=== PATIENT | male | born 1990 | race Caucasian/White ===

== ENCOUNTER 2017-02-19 16:13 | Emergency (ER) | payer OTHER ==
[~2017-02-19] VITALS: Ht 182.9 cm; Wt 92.5 kg
[2017-02-19 16:27] VITALS: BP 150/96
--- NOTE | 2017-02-19 16:43 | NUR ---
Patient to bed 08.
--- NOTE | 2017-02-19 16:51 | NUR ---
PT PRESENTS TO ER W/C/O N/V/D X2 DAYS. HX HTN. ; SKIN IS PINK/WARM/DRY; AAOX4 WITH EVEN AND STEADY GAIT; LUNGS CLEAR BL; HR EVEN AND REGULAR; PT DENIES ANY FEVER, CP, SOB, OR COUGH AT THIS TIME; PATIENT STATES PAIN OF 5/10 AT THIS TIME; VSS; PATIENT POSITIONED FOR COMFORT; HOB ELEVATED; BEDRAILS UP X2; BED DOWN. ER MD MADE AWARE OF PT STATUS.
[2017-02-19] MEDS ORDERED: ONDANSETRON 4 MG ODT PO ONE (17:00)
[2017-02-19 17:40] VITALS: BP 138/88
--- NOTE | 2017-02-19 17:40 | NUR ---
Patient discharged with v/s stable. Written and verbal after care instructions given and explained. Patient alert, oriented and verbalized understanding of instructions. Ambulatory with steady gait. All questions addressed prior to discharge. ID band removed. Patient advised to follow up with PMD. Rx of DEBBI NEWMAN given. Patient educated on indication of medication including possible reaction and side effects. Opportunity to ask questions provided and answered.
== END 2017-02-19 17:40 | disposition home or self-care (01) ==
LOC: MED 16:13
DX: T62.8X1A Toxic effect of other specified noxious substances eaten as food, accidental (unintentional), initial encounter (principal); K52.89 Other specified noninfective gastroenteritis and colitis; Z90.89 Acquired absence of other organs; Y92.511 Restaurant or cafe as the place of occurrence of the external cause
CPT/HCPCS: 81002; 99283; S0119

== ENCOUNTER 2018-09-28 20:44 | Emergency (ER) | payer OTHER ==
[~2018-09-28] VITALS: Ht 177.8 cm; Wt 88.5 kg
[2018-09-28 20:45] VITALS: BP 140/90
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
--- NOTE | 2018-09-28 20:45 | NUR ---
TO BED # 12 AMBULATORY
--- NOTE | 2018-09-28 20:57 | NUR ---
Dr. García evaluating patient at bedside.
[2018-09-28] MEDS ORDERED: IBUPROFEN 800 MG TAB PO ONE (21:00)
[2018-09-28] MEDS ORDERED: BACITRACIN OINT 500 UNITS/GM PKT TP ONE (21:00)
[2018-09-28] MEDS ORDERED: LIDOCAINE 1% 500 MG/50 ML VIAL INJ SCH (21:00)
--- NOTE | 2018-09-28 21:00 | NUR ---
2 VIALS OF LIDOCAIN 1% 50MG/5ML PULLED FROM garbs PER DR. JC.
[2018-09-28] MEDS ORDERED: LIDOCAINE MPF 1% 5mL VIAL INJ ONE (21:05)
--- NOTE | 2018-09-28 21:16 | NUR ---
PT CLEANSED WITH NS AND IDODINE SOLUTION. SITE SHAVED. PT TOLERATED PROCEDURE WELL. CONTINUE TO MONITOR.
[2018-09-28] MEDS ORDERED: LIDOCAINE MPF 1% - 5 mL VIAL 10 ML ONE (21:17)
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
[2018-09-28 21:47] VITALS: BP 132/88
--- NOTE | 2018-09-28 21:47 | NUR ---
DISCHARGE PAPERS GIVEN TO PT. 05/26 PAIN BUT TOLLERABLE. SUTURES AND TOYIN INTACT. PT TOLLERATED PROCEDURES WELL. STATES VERY SATISFIED WITH SERVICE HERE. DR JC TOLD PT TO RETURN TO ER IN 7 DAYS FOR SUTURE AND STAPLE REMOVAL. RX OF IBUPROFEN GIVEN. SIDE EFFECTS EXPLAINED. PT VERBALLIZED UNDERSTANDING OF DC INSTRUCTIONS. ALL QUESTIONS ANSWERED.
== END 2018-09-28 21:47 | disposition home or self-care (01) ==
LOC: MED 20:44
DX: S01.01XA Laceration without foreign body of scalp, initial encounter (principal); S30.810A Abrasion of lower back and pelvis, initial encounter; S40.812A Abrasion of left upper arm, initial encounter; S40.811A Abrasion of right upper arm, initial encounter; S80.811A Abrasion, right lower leg, initial encounter; S80.812A Abrasion, left lower leg, initial encounter; Y04.2XXA Assault by strike against or bumped into by another person, initial encounter; Y93.89 Activity, other specified; Y92.89 Other specified places as the place of occurrence of the external cause; Y99.8 Other external cause status
CPT/HCPCS: 12002; 90471; 90715; 99284; J2001

== ENCOUNTER 2021-08-17 10:16 | Emergency (ER) | payer OTHER ==
[~2021-08-17] VITALS: Ht 177.8 cm; Wt 109.5 kg
[2021-08-17 10:22] VITALS: BP 156/103
--- NOTE | 2021-08-17 10:45 | NUR ---
30 Y/O M BIB SELF C/O LUQ ABD PAIN 07/24 X 3 WEEKS. BP 156/103 AT THIS TIME. NKA PMH: HTN MEDS: LINSINPRIM NOT TAKING
--- NOTE | 2021-08-17 11:02 | NUR ---
DR CANELA AT BEDSIDE.
--- NOTE | 2021-08-17 11:19 | NUR ---
Patient discharged with v/s stable. Written and verbal after care instructions given and explained. Patient verbalized understanding. Ambulatory with steady gait. All questions addressed prior to discharge. Advised to follow up with PMD.
--- NOTE | 2021-08-17 11:20 | NUR ---
Chart checked and completed. The patient's care was reviewed and supervised by Maribel Vyas RN.
== END 2021-08-17 11:48 | disposition home or self-care (01) ==
LOC: MED 10:16
DX: R10.32 Left lower quadrant pain (principal)
CPT/HCPCS: 99281

== ENCOUNTER 2022-10-07 11:02 | Emergency (ER) | payer OTHER ==
[~2022-10-07] VITALS: Ht 175.3 cm; Wt 90.7 kg
[2022-10-07 11:06] VITALS: BP 145/103; PULSE 57; RESP 20; TEMP 98; O2SAT 99
--- NOTE | 2022-10-07 11:10 | NUR ---
PT AMBULATED TO BED 11 WITHOUT ASSISTANCE
[2022-10-07] MEDS ORDERED: ONDANSETRON 4 MG/2 ML VIAL IVP ONE (11:20)
[2022-10-07] MEDS ORDERED: NACL 0.9% 1,000 ML IV ONE (11:20)
[2022-10-07] MEDS ORDERED: MORPHINE SULFATE 4 MG/ML SYR IVP ONE (11:20)
[2022-10-07 11:40] LABS: BASOPHILS % (AUTO) 0.2 % (0.0-2.0); EOSINOPHILS # (AUTO) 0.1 K/uL (0-0.4); EOSINOPHILS % (AUTO) 0.4 % (0.0-4.0); HEMATOCRIT 47.5 % (36-52); HEMOGLOBIN 16.1 g/dL (12.0-18.0); LYMPHOCYTES % (AUTO) 6.7 % (20.5-51.1); MEAN CORPUSCULAR HEMOGLOBIN 29 pg (27-31); MEAN CORPUSCULAR HGB CONC 34 g/dL (33-37); MONOCYTES # (AUTO) 0.6 K/uL (0.8-1.0); MONOCYTES % (AUTO) 3.9 % (1.7-9.3); NEUTROPHILS # (AUTO) 13.5 K/uL (1.8-7.7); NEUTROPHILS % (AUTO) 88.8 % (42.2-75.2); PLATELET COUNT (AUTO) 313 K/uL (140-450); RED BLOOD CELL COUNT(AUTO) 5.52 MIL/uL (4.20-6.10); RED CELL DISTRIBUTION WIDTH 13.4 % (11.6-13.7); WHITE BLOOD COUNT (AUTO) 15.2 K/uL (4.8-10.8)
--- NOTE | 2022-10-07 11:43 | NUR ---
PT MEDICATED PER MD ORDERS. TOLERATED WELL.RESTING IN BED. ALL QUESTIONS ANSWERED AT THIS TIME
[2022-10-07 11:58] LABS: APPEARANCE,URINE CLEAR (CLEAR); BILIRUBIN,URINE NEGATIVE (NEGATIVE); BLOOD, URINE NEGATIVE (NEGATIVE); COLOR,URINE YELLOW (YELLOW); LEUKOCYTE ESTERASE ,URINE NEGATIVE (NEGATIVE); NITRITE, URINE NEGATIVE (NEGATIVE); PH,URINE 5.5 (5.0-9.0); UGLUCOSE NEGATIVE (NEGATIVE)
[2022-10-07 12:06] LABS: ALBUMIN 4.3 g/dL (3.4-5.0); ANION GAP 13.3 (8-16); CARBON DIOXIDE 25.2 mmol/L (21-32); POTASSIUM 3.5 mmol/L (3.5-5.1); TOTAL BILIRUBIN 0.8 mg/dL (0.0-1.0)
--- NOTE | 2022-10-07 12:30 | NUR ---
PT WHEELED TO RADIOLOGY
[2022-10-07] MEDS ORDERED: FAMO-90 PO (12:51)
[2022-10-07] MEDS ORDERED: BEN10 PO (12:51)
[2022-10-07] MEDS ORDERED: ONDA-188 PO (12:51)
[2022-10-07] MEDS ORDERED: SUCR1TAB35 PO (12:51)
--- NOTE | 2022-10-07 13:14 | NUR ---
Patient discharged with v/s stable. Written and verbal after care instructions given and explained. Patient alert, oriented and verbalized understanding of instructions. Ambulatory with steady gait. All questions addressed prior to discharge. ID band removed. Patient advised to follow up with PMD. Rx of BENTYL,PEPCID,ZOFRAN,CARAFATE given. Patient educated on indication of medication including possible reaction and side effects. Opportunity to ask questions provided and answered.
== END 2022-10-07 11:06 | disposition home or self-care (01) ==
LOC: MED 11:02
DX: R10.9 Unspecified abdominal pain (principal); R11.0 Nausea; I10 Essential (primary) hypertension; Z90.49 Acquired absence of other specified parts of digestive tract; Z79.899 Other long term (current) drug therapy
CPT/HCPCS: 36415; 74176; 80053; 81003; 83690; 85025; 96361; 96374; 96375; 99285; J2270; J2405; J7030

== ENCOUNTER 2022-12-11 08:12 | Emergency (ER) | payer OTHER ==
[~2022-12-11] VITALS: Ht 175.3 cm; Wt 88.5 kg
[~2022-12-11 08:12] MED LIST: BEN10 PO; FAMO-90 PO; ONDA-188 PO; SUCR1TAB35 PO
[2022-12-11 08:41] VITALS: BP 133/80; PULSE 68; RESP 18; TEMP 96.9; O2SAT 96
[2022-12-11] MEDS ORDERED: DIPH25TA53 PO (10:30)
[2022-12-11] MEDS ORDERED: PRED20TA5 PO (10:30)
== END 2022-12-11 10:35 | disposition home or self-care (01) ==
LOC: MED 08:12
DX: R21 Rash and other nonspecific skin eruption (principal); R22.0 Localized swelling, mass and lump, head; L29.9 Pruritus, unspecified; I10 Essential (primary) hypertension; Z90.49 Acquired absence of other specified parts of digestive tract; Z79.899 Other long term (current) drug therapy
CPT/HCPCS: 99282